=== PATIENT | female | born 1985 | race Two or more races ===

== ENCOUNTER 2018-06-17 13:13 | Emergency (ER) | payer MEDICAID ==
[~2018-06-17] VITALS: Ht 165.1 cm; Wt 58.5 kg
[~2018-06-17 13:13] MED LIST: GLYB5TAB7 PO; IBUP-1957; METF-440 PO
--- NOTE | 2018-06-17 13:25 | NUR ---
PATIENT TO ED DT ITCHING IN HER BACK X 1 MONTH, NO RASH NOTED. PATIENT IS AFEBRILE. VSS
[2018-06-17 17:10] LABS: APPEARANCE,URINE Clear (CLEAR); BILIRUBIN,URINE Negative (NEGATIVE); BLOOD, URINE Negative Ery/uL (NEGATIVE); COLOR,URINE Yellow (YELLOW); KETONES,URINE Negative (NEGATIVE); LEUKOCYTE ESTERASE ,URINE Small (NEGATIVE); NITRITE, URINE Negative (NEGATIVE); PH,URINE 5.5 (5.0-8.0); PROTEIN,URINE Negative (NEGATIVE); UGLUCOSE Negative (NEGATIVE); UROBILINOGEN,URINE 0.2 EU/dL (0.2)
[2018-06-17 17:30] LABS: BACTERIA,URINE Few /HPF (None Seen); RBC,URINE 0-2 /HPF (0-2); SQUAMOUS EPITHELIAL CELL,UR Moderate /HPF (None Seen)
[2018-06-17 19:32] VITALS: BP 119/81
== END 2018-06-17 19:33 | disposition home or self-care (01) ==
LOC: ER 13:19
DX: N30.00 Acute cystitis without hematuria (principal); E11.9 Type 2 diabetes mellitus without complications
CPT/HCPCS: 36415; 76856; 81001; 84702; 84703; 87077; 87086; 87491; 87591; 99285; A4606; Z7610; 81000-TC

== ENCOUNTER 2020-03-12 09:03 | Inpatient (IN) | payer MEDICAID ==
[2020-03-12] VITALS (8 sets, daily range): BP systolic 110–148; BP diastolic 67–83
[~2020-03-12] VITALS: Ht 162.6 cm; Wt 71.2 kg
--- NOTE | 2020-03-12 09:10 | NUR ---
PT BIB SELF C/O BODY PAIN AND FEVER STARTED SINCE FRIDAY, PT IS AAOX4 [place] CIT[place] SPEAKING ONLY, HOOKED TO MONITOR, KEPT RESTED AND COMFORTABLE, WILL CONTINUE MONITOR.
[2020-03-12] MEDS ORDERED: IV NS 0.9% 1,000 ML IV ONE (09:16)
--- NOTE | 2020-03-12 09:18 | NUR ---
SEEN AND EXAMINED BY .
--- NOTE | 2020-03-12 09:25 | NUR ---
URINE SPECIMEN COLLECTED AND SENT TO LAB.
[2020-03-12] MEDS ORDERED: ACETAMINOPHEN ES 500 MG TABLET PO ONE (09:30)
[2020-03-12] MEDS ORDERED: KETOROLAC TROMETHAMINE INJ 30 MG/ML VIAL IV ONE (09:30)
--- NOTE | 2020-03-12 09:30 | NUR ---
IV LINE ESTABLISHED BLOOD DRAWN AND SENT TO LAB.
--- NOTE | 2020-03-12 09:35 | NUR ---
PEBBLE MILL OPERATOR AT BEDSIDE FOR XRAY.
--- NOTE | 2020-03-12 09:37 | NUR ---
COVID SWAB OBTAINED AND SENT TO LAB.
[2020-03-12 09:45] LABS: BASOPHILS % (AUTO) 0.2 % (0.0-2.0); HEMATOCRIT 39 % (33-45); HEMOGLOBIN 12.6 g/dL (11.5-14.8); LYMPHOCYTES # (AUTO) 0.5 /CMM (0.8-4.8); LYMPHOCYTES % (AUTO) 5.1 % (20.0-44.0); MEAN CORPUSCULAR HGB CONC 33 g/dl (31.0-36.0); MEAN CORPUSCULAR VOLUME 85 fL (82-100); MONOCYTES # (AUTO) 0.4 /CMM (0.1-1.30); MONOCYTES % (AUTO) 3.9 % (2.0-12.0); NEUTROPHILS # (AUTO) 9.2 /CMM (1.8-8.9); NEUTROPHILS % (AUTO) 90.8 % (43.0-81.0); PLATELET COUNT (AUTO) 200 /CMM (150-450); RED BLOOD CELL COUNT(AUTO) 4.55 MIL/uL (4.0-5.2); WHITE BLOOD COUNT (AUTO) 10.2 K/uL (4.3-11.0)
[2020-03-12 09:49] LABS: APPEARANCE,URINE SL CLOUDY (CLEAR); BILIRUBIN,URINE SMALL (NEGATIVE); BLOOD, URINE LARGE Ery/uL (NEGATIVE); COLOR,URINE ORANGE (YELLOW); KETONES,URINE >=80 (NEGATIVE); LEUKOCYTE ESTERASE ,URINE NEGATIVE (NEGATIVE); NITRITE, URINE NEGATIVE (NEGATIVE); PH,URINE 5.5 (5.0-8.0); PROTEIN,URINE NEGATIVE (NEGATIVE); UGLUCOSE >=1000 mg/dL (NEGATIVE); UROBILINOGEN,URINE 0.2 EU/dL (0.2)
[2020-03-12] MEDS ORDERED: ACETAMINOPHEN ES 500 MG TABLET ONE (09:50)
[2020-03-12] MEDS ORDERED: KETOROLAC TROMETHAMINE 15 MG/ML VIAL ONE (09:50)
[2020-03-12 09:55] LABS: RBC,URINE TOO NUMEROUS TO COUN /HPF (0-2)
[2020-03-12 09:56] LABS: BACTERIA,URINE Few /HPF (None Seen)
[2020-03-12 09:57] LABS: CALCIUM, SERUM 8.9 mg/dL (8.5-10.1); CREATININE 0.6 mg/dL (0.6-1.3); POTASSIUM 3.9 mmol/L (3.5-5.1)
[2020-03-12 10:05] LABS: ALBUMIN 3.7 g/dL (3.4-5.0); BILIRUBIN,TOTAL 0.8 mg/dL (0.2-1.0); TOTAL PROTEIN, SERUM 7.8 g/dL (6.4-8.2)
--- NOTE | 2020-03-12 10:57 | NUR ---
ROOM 103
[2020-03-12] MEDS ORDERED: IV NS 0.9% 1,000 ML BAG IV ONE (11:00)
[2020-03-12] MEDS ORDERED: PIPERACILLIN /TAZOBACTAM 3.375 G in IV D5W 50 ML IV ONE (11:00)
--- NOTE | 2020-03-12 11:40 | NUR ---
REPORT GIVEN TO PRINCESS BELTRAN FOR [place]. WITH ONGOING IVF TRANSFUSING WELL.
[2020-03-12] MEDS ORDERED: ONDANSETRON HCL/PF 4 MG/2 ML VIAL IVP PRN (12:30)
[2020-03-12] MEDS ORDERED: MAGNESIUM HYDROXIDE 30 ML UDC PO PRN (12:30)
[2020-03-12] MEDS ORDERED: Z GUARD REMEDY 2 OZ OINT TP PRN (12:30)
[2020-03-12] MEDS ORDERED: MAG HYDROX/AL HYDROX/SIMETH 30 ML UDC PO PRN (12:30)
[2020-03-12] MEDS ORDERED: HYDROCODONE/APAP 5/325MG 1 EACH TABLET PO PRN (12:30)
[2020-03-12] MEDS ORDERED: *INSULIN REGULAR(HUMULIN R)HUM 100 UNIT/ML VIAL SQ PRN (12:30)
[2020-03-12] MEDS ORDERED: INSULIN REGULAR, HUMAN 100 UNIT/ML 3 ML VIAL SQ PRN (12:30)
[2020-03-12] MEDS ORDERED: DEXTROSE 50%-WATER 50 ML DISP.SYRIN IV PRN ×2 (12:30→17:00)
[2020-03-12] MEDS ORDERED: FEE PK DOSING 1 MIN EA MC ONE (12:46)
--- NOTE | 2020-03-12 12:46 | NUR ---
DIRECTOR OF CAMPUS RECREATION RECEIVING NOTES RECEIVED PATIENT (ADMIT FROM ER). CAME IN VIA GURNEY. VITAL SIGNS WNL. PATIENT ON ROOM AIR; BREATHING IS EVEN AND UNLABORED; NO SOB PRESENT AT THIS TIME. MILD HEADACHE PRESENT. WILL CONTINUE TO MONITOR PATIENT.
[2020-03-12] MEDS ORDERED: VANCOMYCIN 1 GM in IV D5W 250 ML IV ONE (13:00)
[2020-03-12] MEDS: IV NS 0.9% 1,000 ML IV PRN ×2 (13:04→15:28)
[2020-03-12] MEDS ORDERED: IV NS 0.9% 1,000 ML IV PRN (14:30)
--- NOTE | 2020-03-12 14:52 | NUR ---
VENDING MACHINE REPAIRER NOTES PATIENT TRANSFER TO ICU PER MD IN MEDICALLY STABLE CONDITION. REPORT GIVEN TO RECEIVING RN.
[2020-03-12] MEDS ORDERED: INSULIN REGULAR, HUMAN 100 UNIT in IV NS 0.9% 99 ML IV PRN ×2 (15:00)
--- NOTE | 2020-03-12 15:00 | NUR ---
RN INITIAL NOTES RECEIVED FROM FABRIZIO VIA BED. PT A/OX4. ON ROOM AIR. NO RESPIRATORY DISTRESS NOTED. NO SOB NOTED. DENIES ANY PAIN. IV LINE IN PLACE. SKIN INTACT. ORIENTED TO ROOM AND USE OF CALL LIGHT. CONNECTED TO MONITOR. PT FOR INSULIN DRIP. WILL CLOSELY MONITOR
[2020-03-12] MEDS: METFORMIN 500 MG TABLET PO SCH (17:00)
[2020-03-12] MEDS: BLOOD SUGAR DIAGNOSTIC 1 EACH STRIP IN SCH ×7 (17:08→23:09)
[2020-03-12] MEDS: ACETAMINOPHEN 325 MG TABLET PO PRN ×2 (17:17→23:09)
[2020-03-12] MEDS ORDERED: BLOOD SUGAR DIAGNOSTIC 1 EACH STRIP IN SCH (17:30)
[2020-03-12] MEDS ORDERED: PIPERACILLIN /TAZOBACTAM 3.375 G in IV D5W 50 ML IV SCH (18:00)
[2020-03-12] MEDS ORDERED: AZITHROMYCIN 250 MG TABLET PO ONE (18:00)
[2020-03-12] MEDS ORDERED: PIPERACILLIN /TAZOBACTAM 4.5 G in IV D5W 50 ML IV SCH (18:00)
--- NOTE | 2020-03-12 18:25 | NUR ---
RN CLOSING NOTES PT REMAINS ON INSULIN DRIP, PROTOCOL FOLLOWED. NO SIGNIFICANT CHANGE NOTED. REMAINS A/OX4. DENIES ANY PAIN. KEPT COMFORTABLE. ALL NEEDS ATTENDED AND MET. CALL LIGHT WITHIN REACH. WILL ENDORSE FOR CONTINUITY OF CARE
[2020-03-12] MEDS: CEFTRIAXONE 1 G in IV D5W 50 ML IV SCH (20:19)
[2020-03-12] MEDS ORDERED: VANCOMYCIN 0.75 GM in IV D5W 250 ML IV SCH (21:00)
[2020-03-12] MEDS: IV D5/ 0.9% NACL 1,000 ML IV SCH (21:24)
[2020-03-12] MEDS: glyBURIDE 5 MG TABLET PO SCH (21:33)
[2020-03-12 22:16] LABS: CALCIUM, SERUM 7.7 mg/dL (8.5-10.1); CREATININE 0.6 mg/dL (0.6-1.3)
[2020-03-13] VITALS (14 sets, daily range): BP systolic 110–136; BP diastolic 61–83
[2020-03-13] MEDS: BLOOD SUGAR DIAGNOSTIC 1 EACH STRIP IN SCH ×12 (00:06→22:22)
[2020-03-13 04:35] LABS: BASOPHILS % (AUTO) 0.5 % (0.0-2.0); HEMATOCRIT 33 % (33-45); HEMOGLOBIN 10.7 g/dL (11.5-14.8); LYMPHOCYTES # (AUTO) 0.9 /CMM (0.8-4.8); LYMPHOCYTES % (AUTO) 22.9 % (20.0-44.0); MEAN CORPUSCULAR HGB CONC 33 g/dl (31.0-36.0); MEAN CORPUSCULAR VOLUME 87 fL (82-100); MONOCYTES # (AUTO) 0.2 /CMM (0.1-1.30); MONOCYTES % (AUTO) 6.3 % (2.0-12.0); NEUTROPHILS # (AUTO) 2.7 /CMM (1.8-8.9); NEUTROPHILS % (AUTO) 70.3 % (43.0-81.0); PLATELET COUNT (AUTO) 160 /CMM (150-450); RED BLOOD CELL COUNT(AUTO) 3.78 MIL/uL (4.0-5.2); WHITE BLOOD COUNT (AUTO) 3.8 K/uL (4.3-11.0)
[2020-03-13 04:56] LABS: ALBUMIN 2.8 g/dL (3.4-5.0); BILIRUBIN,TOTAL 0.3 mg/dL (0.2-1.0); CALCIUM, SERUM 7.8 mg/dL (8.5-10.1); CREATININE 0.4 mg/dL (0.6-1.3); PHOSPHORUS 2.2 mg/dL (2.5-4.9); POTASSIUM 4.1 mmol/L (3.5-5.1); TOTAL PROTEIN, SERUM 6.3 g/dL (6.4-8.2)
[2020-03-13 04:59] LABS: THYROID STIMULATING HORMONE 0.742 uIU/mL (0.358-3.74)
[2020-03-13] MEDS: IV D5/ 0.9% NACL 1,000 ML IV SCH (05:44)
[2020-03-13] MEDS: ACETAMINOPHEN 325 MG TABLET PO PRN ×3 (06:46→22:22)
--- NOTE | 2020-03-13 07:50 | NUR ---
ICU/RN: INITIAL NOTES,AM RECEIVED REPORT FROM NIGHT NURSE. PT ALERT, AWAKE, FOLLOWS COMMANDS. ON ROOM AIR, NO ACUTE DISTRESS NOTED. SINUS ON TELE. INSULIN DRIP INFUSING PER PROTOCOL. ANION GAG CLOSED WILL CALL PRIMARY MD NO FURTHER ORDERS. ALL NEEDS WILL BE ATTENDED TO, SAFETY MEASURES TAKEN, BED IN LOW POSITION, SIDE RAILS UP, CALL LIGHT WITHIN REACH.
[2020-03-13] MEDS: METFORMIN 500 MG TABLET PO SCH ×3 (08:21→17:36)
--- NOTE | 2020-03-13 08:30 | NUR ---
ICU/RN: DR. BURNETTE AT BEDSIDE. INSULIN DRIP D/C'D. WILL CONTINUE IVF. PT NOW ON AGGRESSIVE SCALE AC/HS
[2020-03-13] MEDS: IV D5/ 0.9% NACL 1,000 ML IV PRN ×2 (08:59→20:24)
[2020-03-13] MEDS ORDERED: DEXTROSE 50%-WATER 50 ML DISP.SYRIN IV PRN (09:00)
--- NOTE | 2020-03-13 10:22 | NUR ---
ICU/RN: INITIAL NOTES,AM RECEIVED REPORT FROM NIGHT NURSE. PT ALERT, AWAKE, FOLLOWS COMMANDS. ON ROOM AIR, NO ACUTE DISTRESS NOTED. SINUS ON TELE. INSULIN DRIP INFUSING PER PROTOCOL. ANION GAG CLOSED WILL CALL PRIMARY MD NO FURTHER ORDERS. ALL NEEDS WILL BE ATTENDED TO, SAFETY MEASURES TAKEN, BED IN LOW POSITION, SIDE RAILS UP, CALL LIGHT WITHIN REACH. Addendum: 03/13/20 at 1134 by RAFAEL GAMINO RN INCORRECT TIME CHARTED
--- NOTE | 2020-03-13 11:10 | NUR ---
ICU/RN: REPORT ENDORSED TO PRINCESS MENDEZ. PT TRANSFERRED TO 101. ALL BELONGINGS SENT WITH PT. NO DISTRESS NOTED. SINUS ON TELE. ON ROOM AIR, NO DISTRESS NOTED
[2020-03-13] MEDS ORDERED: K PHOS NEUTRAL 250 MG TABLET PO ONE (12:00)
[2020-03-13] MEDS: INSULIN REGULAR, HUMAN 100 UNIT/ML 3 ML VIAL SQ PRN (12:31)
[2020-03-13] MEDS: *INSULIN REGULAR(HUMULIN R)HUM 100 UNIT/ML VIAL SQ PRN ×2 (17:37→22:24)
[2020-03-13] MEDS ORDERED: AZITHROMYCIN 250 MG TABLET PO SCH (18:00)
[2020-03-13] MEDS: CEFTRIAXONE 1 G in IV D5W 50 ML IV SCH (20:21)
[2020-03-13] MEDS: glyBURIDE 5 MG TABLET PO SCH (22:22)
[2020-03-14] MEDS ORDERED: IV NS 0.9% 1,000 ML IV PRN (03:00)
[2020-03-14 06:47] LABS: CALCIUM, SERUM 8.5 mg/dL (8.5-10.1); CREATININE 0.4 mg/dL (0.6-1.3); PHOSPHORUS 3.1 mg/dL (2.5-4.9); POTASSIUM 3.8 mmol/L (3.5-5.1)
--- NOTE | 2020-03-14 07:30 | NUR ---
ms rn received pt on bed, awake,alert,oriented x4,not in any form of distress, respirations even and unlabored,no sob noted, lungs are clear,abdomen soft,positive bowel sounds,denies pain at this time, will monitor patient's condition.
[2020-03-14 08:00] VITALS: BP 122/82
[2020-03-14] MEDS: BLOOD SUGAR DIAGNOSTIC 1 EACH STRIP IN SCH ×2 (08:05→11:56)
[2020-03-14] MEDS: METFORMIN 500 MG TABLET PO SCH (08:28)
--- NOTE | 2020-03-14 08:55 | NUR ---
ms rn received a positive covid test result, aware.
--- NOTE | 2020-03-14 09:00 | NUR ---
ms [place] breakfast served,due meds given, tolerated well.
[2020-03-14] MEDS: INSULIN REGULAR, HUMAN 100 UNIT/ML 3 ML VIAL SQ PRN ×2 (09:07→12:11)
[2020-03-14] MEDS ORDERED: AZIT250T13 PO (09:12)
--- NOTE | 2020-03-14 09:36 | NUR ---
ms rn was seen by jessica huber/ heladio to go home today.
--- NOTE | 2020-03-14 12:00 | NUR ---
ms furnace puncher instructions given,went home bean picker machine operator by ,all needs attended
== END 2020-03-14 13:39 | disposition home or self-care (01) | DRG 420 ==
LOC: ER 09:05 → TELE-TD 10:57 → TELE1 11:13 → ICU 14:26 → MEDSG1 03-13 10:52
PROVIDERS: ADMIT Internal Medicine; ATTEND Internal Medicine
DX: E11.10 Type 2 diabetes mellitus with ketoacidosis without coma (principal); R65.11 Systemic inflammatory response syndrome (SIRS) of non-infectious origin with acute organ dysfunction; E87.2 Acidosis; Z79.84 Long term (current) use of oral hypoglycemic drugs; R63.1 Polydipsia; E22.2 Syndrome of inappropriate secretion of antidiuretic hormone
CPT/HCPCS: 36415; 71045-TC; 80048-TC; 80053-TC; 80061-TC; 81000-TC; 82550-TC; 82728-TC; 82962-TC; 83605-TC; 83615-TC; 83735-TC; 84100-TC; 84443-TC; 84484-TC; 84703-TC; 85025-TC; 87040-TC; 87070-TC; 87081-TC; 87086-TC; G0378; J0696; J1815; J1885; J2543; J3370; J3490; J7030; J7042; J7060; U0003-CS

== ENCOUNTER 2021-09-16 06:16 | Emergency (ER) | payer MEDICAID ==
[~2021-09-16] VITALS: Ht 165.1 cm; Wt 74.8 kg
[~2021-09-16 06:16] MED LIST changes: +AZIT250T13 PO; -IBUP-1957
[2021-09-16 06:56] VITALS: BP 145/78
--- NOTE | 2021-09-16 06:57 | NUR ---
BIB FAMILY C/O RIGHT UPPER EXTREM,ITY PAIN.PT ALERT ORIENTED X4 RR EVEN UNLABORED NO SOB NOTED.
[2021-09-16] MEDS ORDERED: HYDROCODONE/APAP 5/325MG TABLET PO ONE (07:00)
[2021-09-16] MEDS ORDERED: CEFTRIAXONE 1 G VIAL IM ONE (07:00)
[2021-09-16] MEDS ORDERED: HYDROCODONE/APAP 5/325MG TABLET ONE (07:05)
[2021-09-16] MEDS ORDERED: CEFTRIAXONE 1 G VIAL ONE (07:05)
[2021-09-16] MEDS ORDERED: LIDOCAINE 1% INJ 50 ML MDV IJ ONE (07:07)
[2021-09-16] MEDS ORDERED: SULF1TAB48 PO (07:07)
[2021-09-16] MEDS ORDERED: CEPH500C2 PO (07:07)
[2021-09-16] MEDS ORDERED: HYDR-3972 PO (07:07)
== END 2021-09-16 07:31 | disposition home or self-care (01) ==
LOC: ER 06:16
DX: L03.113 Cellulitis of right upper limb (principal); E11.9 Type 2 diabetes mellitus without complications; Z79.2 Long term (current) use of antibiotics; Z79.899 Other long term (current) drug therapy
CPT/HCPCS: 96372; 99283; J0696; J3490

== ENCOUNTER 2022-01-07 10:56 | Emergency (ER) | payer MEDICAID ==
[~2022-01-07] VITALS: Ht 157.5 cm; Wt 65.8 kg
[~2022-01-07 10:56] MED LIST changes: +CEPH500C2 PO; +HYDR-3972 PO; +SULF1TAB48 PO
[2022-01-07 11:05] VITALS: BP 127/73
--- NOTE | 2022-01-07 11:05 | NUR ---
CAME THIS 36YO/FEMALE PATIENT, AMBULATORY WITH CC OF DENTAL PAIN X 3 DAYS,CAN'T GET AN APPOINTMENT WITH DENTIST. PLACED COMFORTABLY IN BED. VITALS CHECKED.
--- NOTE | 2022-01-07 11:06 | NUR ---
SEEN BY DR WEIR AT BEDSIDE
[2022-01-07] MEDS ORDERED: AMOX-427 PO (11:07)
[2022-01-07] MEDS ORDERED: IBUP-1955 PO (11:10)
--- NOTE | 2022-01-07 11:15 | NUR ---
Patient discharged to home in stable condition. Written and verbal after care instructions given. Patient verbalizes understanding of instruction.
== END 2022-01-07 11:16 | disposition home or self-care (01) ==
LOC: ER 10:58
DX: K04.7 Periapical abscess without sinus (principal); E11.65 Type 2 diabetes mellitus with hyperglycemia; Z79.899 Other long term (current) drug therapy

== ENCOUNTER 2022-01-26 09:48 | Emergency (ER) | payer MEDICAID ==
[~2022-01-26] VITALS: Ht 170.2 cm; Wt 61.2 kg
[~2022-01-26 09:48] MED LIST changes: +AMOX-427 PO; +IBUP-1955 PO
--- NOTE | 2022-01-26 10:00 | NUR ---
To ER bed 9, c/o on and off abd pain x 1 month, +nausea vomiting 7/10 ps, seen her md 1 mo ago and had some labs done but everything is okay per patient, awaiting md orders
--- NOTE | 2022-01-26 10:00 | NUR ---
dr bang at bedside for eval
--- NOTE | 2022-01-26 10:02 | NUR ---
URINE COLLECTED AND SENT TO LAB
[2022-01-26 10:39] LABS: BILIRUBIN,URINE NEGATIVE (NEGATIVE); COLOR,URINE YELLOW (YELLOW); NITRITE, URINE NEGATIVE (NEGATIVE); PROTEIN,URINE NEGATIVE (NEGATIVE); UGLUCOSE >=1000 mg/dL (NEGATIVE); UROBILINOGEN,URINE 0.2 EU/dL (0.2)
[2022-01-26 10:41] LABS: BASOPHILS % (AUTO) 0.7 % (0.0-2.0); EOSINOPHILS % (AUTO) 2.3 % (0.0-6.0); HEMATOCRIT 37 % (33-45); HEMOGLOBIN 11.8 g/dL (11.5-14.8); LYMPHOCYTES # (AUTO) 1.7 K/uL (0.8-4.8); LYMPHOCYTES % (AUTO) 31.5 % (20.0-44.0); MEAN CORPUSCULAR HGB CONC 32 g/dl (31.0-36.0); MEAN CORPUSCULAR VOLUME 82 fL (82-100); MONOCYTES # (AUTO) 0.3 K/uL (0.1-1.30); MONOCYTES % (AUTO) 5.5 % (2.0-12.0); NEUTROPHILS # (AUTO) 3.3 K/uL (1.8-8.9); PLATELET COUNT (AUTO) 250 K/uL (150-450); RED BLOOD CELL COUNT(AUTO) 4.44 MIL/uL (4.0-5.2); WHITE BLOOD COUNT (AUTO) 5.5 K/uL (4.3-11.0)
[2022-01-26 10:54] LABS: RBC,URINE 21-50 /HPF (0-2)
[2022-01-26 10:55] LABS: BACTERIA,URINE Few /HPF (None Seen); LEUKOCYTE ESTERASE ,URINE 1+ (NEGATIVE); SQUAMOUS EPITHELIAL CELL,UR Moderate /HPF (None Seen)
[2022-01-26 11:04] LABS: ALBUMIN 3.8 g/dL (3.4-5.0); BILIRUBIN,DIRECT 0.1 mg/dL (0.0-0.2); BILIRUBIN,TOTAL 0.4 mg/dL (0.2-1.0); CALCIUM, SERUM 8.9 mg/dL (8.5-10.1); CREATININE 0.5 mg/dL (0.6-1.3); TOTAL PROTEIN, SERUM 7.2 g/dL (6.4-8.2)
--- NOTE | 2022-01-26 11:20 | NUR ---
TAKEN TO CT VIA GOLDY
--- NOTE | 2022-01-26 12:47 | NUR ---
CALLED FOR CT RESULTS, CT WILL CHECK WHAT'S GOING ON
[2022-01-26 13:08] VITALS: BP 117/74
--- NOTE | 2022-01-26 13:08 | NUR ---
Patient discharged to home in stable condition. Written and verbal after care instructions given. Patient verbalizes understanding of instruction.
== END 2022-01-26 13:09 | disposition home or self-care (01) ==
LOC: ER 09:52
DX: R10.84 Generalized abdominal pain (principal); E11.9 Type 2 diabetes mellitus without complications; Z79.899 Other long term (current) drug therapy
CPT/HCPCS: 36415; 80048-TC; 80076-TC; 81001; 83690-TC; 84703-TC; 85025-TC; 87086-TC

== ENCOUNTER 2022-10-26 10:49 | Emergency (ER) | payer MEDICAID ==
[~2022-10-26] VITALS: Ht 160 cm; Wt 61.2 kg
--- NOTE | 2022-10-26 11:00 | NUR ---
BIBS W/ C/O COUGH THAT STARTED YESTERDAY. TO ER BED 7.
--- NOTE | 2022-10-26 11:20 | NUR ---
PT SEEN BY MD AT BEDSIDE
--- NOTE | 2022-10-26 11:23 | NUR ---
PER DR RIZO, PT HAD CLOSE CONTACT W/ SOMEONE WHO HAD COVID; INFECTION CONTROL PRECS INSTITUTED.
[2022-10-26] MEDS ORDERED: LORATADINE 10 MG TABLET ONE (11:28)
[2022-10-26] MEDS ORDERED: KETOROLAC TROMETHAMINE INJ 30 MG/ML VIAL ONE (11:28)
[2022-10-26] MEDS ORDERED: LORATADINE 10 MG TABLET PO ONE (11:30)
[2022-10-26] MEDS: KETOROLAC TROMETHAMINE INJ 60 MG/2 ML VIAL IM ONE ×2 (11:42→11:44)
--- NOTE | 2022-10-26 11:42 | NUR ---
TORADOL IM GIVEN LEFT DELOTID; CLARITIN PO GIVEN INDICATED, RAAD WELL.
--- NOTE | 2022-10-26 11:42 | NUR ---
RAPID COVID AND FLU SWABS OBTAINED AND SENT TO LAB.
--- NOTE | 2022-10-26 12:31 | NUR ---
COVID POSITIVE RELAYED BY FLOORING HELPER. MADE AWARE
[2022-10-26] MEDS ORDERED: IBUP-1955 PO (12:41)
[2022-10-26] MEDS ORDERED: LORA10TA68 PO (12:41)
[2022-10-26] MEDS ORDERED: HYDROCODONE/APAP 10/325MG TABLET PO ONE (13:30)
[2022-10-26] MEDS ORDERED: HYDROCODONE/APAP 10/325MG TABLET ONE (13:34)
--- NOTE | 2022-10-26 13:54 | NUR ---
Patient discharged to home in stable condition. Written and verbal after care instructions given. Patient verbalizes understanding of instruction.
[2022-10-26 13:55] VITALS: BP 120/68
== END 2022-10-26 14:04 | disposition home or self-care (01) ==
LOC: ER 11:04
DX: U07.1 COVID-19 (principal); E11.9 Type 2 diabetes mellitus without complications; Z79.899 Other long term (current) drug therapy
CPT/HCPCS: 99284; 71045; 87426; 96372; 87804 ×2; J1885; C9803

== ENCOUNTER 2023-02-28 12:58 | Emergency (ER) | payer MEDICAID ==
[~2023-02-28] VITALS: Ht 162.6 cm; Wt 59.9 kg
[~2023-02-28 12:58] MED LIST changes: +LORA10TA68 PO
--- NOTE | 2023-02-28 13:05 | NUR ---
RECEIVED PT 38 YRS FEMALE FROM HOME C/O abdominale pain for 2 month goting worse last week abdomine soft none tendertouch no N/V
--- NOTE | 2023-02-28 13:30 | NUR ---
BLOOD DROW BY LAB TACH
[2023-02-28 13:41] LABS: BASOPHILS % (AUTO) 0.5 % (0.0-2.0); EOSINOPHILS % (AUTO) 1.2 % (0.0-6.0); HEMATOCRIT 43 % (33-45); HEMOGLOBIN 14.2 g/dL (11.5-14.8); LYMPHOCYTES # (AUTO) 2.1 K/uL (0.8-4.8); LYMPHOCYTES % (AUTO) 29.8 % (20.0-44.0); MEAN CORPUSCULAR HGB CONC 33 g/dl (31.0-36.0); MEAN CORPUSCULAR VOLUME 89 fL (82-100); MONOCYTES # (AUTO) 0.3 K/uL (0.1-1.30); NEUTROPHILS # (AUTO) 4.4 K/uL (1.8-8.9); NEUTROPHILS % (AUTO) 63.5 % (43.0-81.0); PLATELET COUNT (AUTO) 224 K/uL (150-450); RED BLOOD CELL COUNT(AUTO) 4.87 MIL/uL (4.0-5.2); WHITE BLOOD COUNT (AUTO) 6.9 K/uL (4.3-11.0)
--- NOTE | 2023-02-28 13:44 | NUR ---
UA SENT TO LAB
--- NOTE | 2023-02-28 13:45 | NUR ---
AT BED SIDE SPOOKING WITH PT PLAN OF CARE PAIN
[2023-02-28 13:49] LABS: CALCIUM, SERUM 9.8 mg/dL (8.5-10.1); CREATININE 0.5 mg/dL (0.6-1.3); POTASSIUM 4.7 mmol/L (3.5-5.1)
[2023-02-28 13:55] LABS: BILIRUBIN,DIRECT 0.1 mg/dL (0.0-0.2); BILIRUBIN,TOTAL 0.5 mg/dL (0.2-1.0); TOTAL PROTEIN, SERUM 7.6 g/dL (6.4-8.2)
--- NOTE | 2023-02-28 14:16 | NUR ---
Andrea cid in [facility] - 02/28/23 at 1717 by TAYO Patient discharged to home in stable condition. Written and verbal after care instructions given. Patient verbalizes understanding of instruction.
--- NOTE | 2023-02-28 14:20 | NUR ---
Dineses abdominale pain or PT FEELING COMFORTABLE
[2023-02-28 14:24] LABS: BILIRUBIN,URINE NEGATIVE (NEGATIVE); COLOR,URINE YELLOW (YELLOW); LEUKOCYTE ESTERASE ,URINE TRACE (NEGATIVE); NITRITE, URINE NEGATIVE (NEGATIVE); PROTEIN,URINE NEGATIVE (NEGATIVE); UGLUCOSE 3+ mg/dL (NEGATIVE); UROBILINOGEN,URINE 0.2 EU/dL (0.2)
[2023-02-28] MEDS ORDERED: METOCLOPRAMIDE HCL 10 MG/2 ML VIAL IV ONE (14:30)
[2023-02-28] MEDS ORDERED: IV NS 0.9% 1,000 ML IV ONE (14:30)
[2023-02-28] MEDS ORDERED: KETOROLAC TROMETHAMINE INJ 30 MG/ML VIAL IV ONE (14:30)
[2023-02-28] MEDS ORDERED: METOCLOPRAMIDE HCL 10 MG/2 ML VIAL ONE (14:38)
[2023-02-28] MEDS ORDERED: KETOROLAC TROMETHAMINE INJ 30 MG/ML VIAL ONE (14:38)
[2023-02-28 15:12] LABS: BACTERIA,URINE None seen /HPF (None Seen)
[2023-02-28] MEDS ORDERED: METO-295 PO (15:46)
[2023-02-28 16:08] VITALS: BP 110/65
--- NOTE | 2023-02-28 16:25 | NUR ---
IV removed. Catheter intact and site benign. Pressure and 4x4 applied to site. No bleeding noted.
--- NOTE | 2023-02-28 16:30 | NUR ---
Patient discharged to home in stable condition. Written and verbal after care instructions given. Patient verbalizes understanding of instruction.
== END 2023-02-28 17:18 | disposition home or self-care (01) ==
LOC: ER 13:00
DX: R10.13 Epigastric pain (principal); E11.65 Type 2 diabetes mellitus with hyperglycemia; Z79.899 Other long term (current) drug therapy
CPT/HCPCS: 99284; 96374; 96361; 96375; 85025; 80048; 83690; 80076; 84703; 81001; 36415; J2765; J1885; J7030; A4223

== ENCOUNTER 2024-03-29 03:27 | Emergency (ER) | payer MEDICAID, OTHER ==
[~2024-03-29] VITALS: Ht 162.6 cm; Wt 74.8 kg
[~2024-03-29 03:27] MED LIST changes: +METO-295 PO
[2024-03-29] MEDS ORDERED: KETOROLAC TROMETHAMINE 15 MG/ML VIAL ONE (04:08)
[2024-03-29] MEDS ORDERED: MAG HYDROX/AL HYDROX/SIMETH 30 ML UDC ONE (04:09)
[2024-03-29] MEDS ORDERED: FAMOTIDINE/PF INJ 20 MG/2 ML VIAL IV ONE (04:09)
[2024-03-29] MEDS ORDERED: METOCLOPRAMIDE HCL 10 MG/2 ML VIAL ONE (04:09)
[2024-03-29] MEDS: KETOROLAC TROMETHAMINE 15 MG/ML VIAL IV ONE (04:15)
[2024-03-29] MEDS: IV NS 0.9% 1,000 ML BAG IV ONE (04:15)
[2024-03-29] MEDS: FAMOTIDINE/PF INJ 20 MG/2 ML VIAL IV ONE (04:15)
[2024-03-29] MEDS: METOCLOPRAMIDE HCL 10 MG/2 ML VIAL IV ONE (04:15)
[2024-03-29] MEDS: MAG HYDROX/AL HYDROX/SIMETH 30 ML UDC PO ONE (04:18)
[2024-03-29 04:22] LABS: BASOPHILS % (AUTO) 0.2 % (0.0-2.0); EOSINOPHILS # (AUTO) 0.1 K/uL (0.0-0.7); EOSINOPHILS % (AUTO) 0.8 % (0.0-6.0); HEMATOCRIT 34 % (33-45); HEMOGLOBIN 11.4 g/dL (11.5-14.8); LYMPHOCYTES # (AUTO) 1.2 K/uL (0.8-4.8); LYMPHOCYTES % (AUTO) 9.4 % (20.0-44.0); MEAN CORPUSCULAR HEMOGLOBIN 30 PG (26.0-33.0); MEAN CORPUSCULAR HGB CONC 34 g/dl (31.0-36.0); MEAN CORPUSCULAR VOLUME 88 fL (82-100); MONOCYTES # (AUTO) 0.4 K/uL (0.1-1.30); MONOCYTES % (AUTO) 3.6 % (2.0-12.0); NEUTROPHILS # (AUTO) 10.7 K/uL (1.8-8.9); PLATELET COUNT (AUTO) 252 K/uL (150-450); RED BLOOD CELL COUNT(AUTO) 3.81 MIL/uL (4.0-5.2); RED CELL DISTRIBUTION WIDTH 13.6 % (11.5-15.0); WHITE BLOOD COUNT (AUTO) 12.4 K/uL (4.3-11.0)
[2024-03-29 04:27] LABS: APPEARANCE,URINE SLIGHTLY CLOUDY (CLEAR); BILIRUBIN,URINE 2+ (NEGATIVE); BLOOD, URINE NEGATIVE Ery/uL (NEGATIVE); COLOR,URINE DARK YELLOW (YELLOW); KETONES,URINE 1+ mg/dL (NEGATIVE); LEUKOCYTE ESTERASE ,URINE NEGATIVE (NEGATIVE); NITRITE, URINE POSITIVE (NEGATIVE); PROTEIN,URINE 2+ mg/dl (NEGATIVE); UGLUCOSE TRACE mg/dL (NEGATIVE)
[2024-03-29 04:36] LABS: ALBUMIN 3.5 g/dL (3.4-5.0); BILIRUBIN,DIRECT 0.1 mg/dL (0.0-0.2); BILIRUBIN,TOTAL 0.4 mg/dL (0.2-1.0); CALCIUM, SERUM 8.7 mg/dL (8.5-10.1); CREATININE 0.6 mg/dL (0.6-1.3); POTASSIUM 3.7 mmol/L (3.5-5.1)
[2024-03-29 04:49] LABS: ADD URINE CULTURE YES; BACTERIA,URINE Few /HPF (None Seen); SQUAMOUS EPITHELIAL CELL,UR Rare /HPF (None Seen)
[2024-03-29] MEDS ORDERED: CEFP200T14 PO (05:15)
[2024-03-29] MEDS ORDERED: CEFTRIAXONE 1GM BAG (ER ONLY) 50 ML IV ONE (05:27)
[2024-03-29] MEDS: CEFTRIAXONE 1GM BAG (ER ONLY) 1 GM/50 ML PIGGYBACK IV ONE (05:30)
[2024-03-29 05:44] VITALS: BP 115/75; TEMP 98.2; O2SAT 100
== END 2024-03-29 05:45 | disposition home or self-care (01) ==
LOC: ER 03:31
DX: N39.0 Urinary tract infection, site not specified (principal); E11.9 Type 2 diabetes mellitus without complications; Z79.84 Long term (current) use of oral hypoglycemic drugs; Z79.899 Other long term (current) drug therapy; Z79.891 Long term (current) use of opiate analgesic
CPT/HCPCS: 99284; 96365; 96375; 96361; 85025; 80048; 87086; 83690; 80076; 81001; 36415; J3490; J2765; J7030; J0696; J1885

== ENCOUNTER 2024-08-06 08:39 | Emergency (ER) | payer OTHER ==
[~2024-08-06] VITALS: Ht 165.1 cm; Wt 59.0 kg
[~2024-08-06 08:39] MED LIST changes: +CEFP200T14 PO
[2024-08-06] MEDS ORDERED: ACETAMINOPHEN 325 MG TABLET ONE (09:56)
[2024-08-06] MEDS ORDERED: ONDANSETRON HCL/PF 4 MG/2 ML VIAL ONE (09:56)
[2024-08-06] MEDS ORDERED: FAMOTIDINE/PF INJ 20 MG/2 ML VIAL IV ONE (09:57)
[2024-08-06] MEDS: FAMOTIDINE/PF INJ 20 MG/2 ML VIAL IV ONE (10:22)
[2024-08-06] MEDS: ONDANSETRON HCL/PF 4 MG/2 ML VIAL IVP ONE (10:22)
[2024-08-06 10:32] LABS: BASOPHILS # (AUTO) 0.1 K/uL (0.0-0.2); BASOPHILS % (AUTO) 0.7 % (0.0-2.0); EOSINOPHILS % (AUTO) 0.2 % (0.0-6.0); HEMATOCRIT 31 % (33-45); HEMOGLOBIN 10.2 g/dL (11.5-14.8); LYMPHOCYTES # (AUTO) 0.4 K/uL (0.8-4.8); LYMPHOCYTES % (AUTO) 4.5 % (20.0-44.0); MEAN CORPUSCULAR HEMOGLOBIN 26 PG (26.0-33.0); MEAN CORPUSCULAR HGB CONC 33 g/dl (31.0-36.0); MEAN CORPUSCULAR VOLUME 81 fL (82-100); MONOCYTES # (AUTO) 0.3 K/uL (0.1-1.30); NEUTROPHILS # (AUTO) 7.5 K/uL (1.8-8.9); NEUTROPHILS % (AUTO) 90.6 % (43.0-81.0); PLATELET COUNT (AUTO) 230 K/uL (150-450); RED BLOOD CELL COUNT(AUTO) 3.86 MIL/uL (4.0-5.2); RED CELL DISTRIBUTION WIDTH 15.4 % (11.5-15.0); WHITE BLOOD COUNT (AUTO) 8.2 K/uL (4.3-11.0)
[2024-08-06 10:34] LABS: APPEARANCE,URINE SLIGHTLY CLOUDY (CLEAR); BILIRUBIN,URINE 1+ (NEGATIVE); BLOOD, URINE TRACE-INTA Ery/uL (NEGATIVE); COLOR,URINE YELLOW (YELLOW); KETONES,URINE 1+ mg/dL (NEGATIVE); LEUKOCYTE ESTERASE ,URINE 2+ (NEGATIVE); NITRITE, URINE NEGATIVE (NEGATIVE); PH,URINE 6.5 (5.0-8.0); PROTEIN,URINE 1+ mg/dl (NEGATIVE); UGLUCOSE NEGATIVE (NEGATIVE); UROBILINOGEN,URINE 0.2 EU/dL (0.2)
[2024-08-06 10:43] LABS: ADD URINE CULTURE YES; BACTERIA,URINE Moderate /HPF (None Seen); SQUAMOUS EPITHELIAL CELL,UR Moderate /HPF (None Seen); WBC,URINE 21-50 /HPF (0-3)
[2024-08-06 10:44] LABS: MUCUS,URINE Few /LPF (None Seen); RBC,URINE 0-2 /HPF (0-2)
[2024-08-06] MEDS: ACETAMINOPHEN 325 MG TABLET PO ONE (10:47)
[2024-08-06] MEDS: IV NS 0.9% 1,000 ML BAG IV ONE (10:48)
[2024-08-06 10:51] LABS: BILIRUBIN,DIRECT 0.1 mg/dL (0.0-0.2); BILIRUBIN,TOTAL 0.7 mg/dL (0.2-1.0); CALCIUM, SERUM 8.9 mg/dL (8.5-10.1); CREATININE 0.5 mg/dL (0.6-1.3); POTASSIUM 3.8 mmol/L (3.5-5.1); TOTAL PROTEIN, SERUM 7.5 g/dL (6.4-8.2)
[2024-08-06] MEDS ORDERED: BENZONATATE 100 MG CAPSULE PO ONE (11:36)
[2024-08-06] MEDS: BENZONATATE 100 MG CAPSULE PO ONE (11:57)
[2024-08-06] MEDS ORDERED: KETOROLAC TROMETHAMINE 15 MG/ML VIAL ONE (14:07)
[2024-08-06] MEDS: IV NS 0.9% 500 ML BAG IV ONE (14:12)
[2024-08-06] MEDS: KETOROLAC TROMETHAMINE 15 MG/ML VIAL IV ONE (14:13)
[2024-08-06] MEDS ORDERED: CEPH500C2 PO (14:38)
[2024-08-06 15:03] VITALS: BP 131/72; TEMP 99.2; O2SAT 99
== END 2024-08-06 15:03 | disposition home or self-care (01) ==
LOC: ER 08:55
DX: J10.1 Influenza due to other identified influenza virus with other respiratory manifestations (principal); R11.2 Nausea with vomiting, unspecified; R19.7 Diarrhea, unspecified; E11.9 Type 2 diabetes mellitus without complications; R10.2 Pelvic and perineal pain; Z79.84 Long term (current) use of oral hypoglycemic drugs; Z20.822 Contact with and (suspected) exposure to COVID-19
CPT/HCPCS: 99284; 96374; 96361; 71045; 87426; 87804 ×2; 85025; 80048; 83690; 80076; 81001; 36415; 84702; J7030 ×2; J7040; J1885; J2405; J3490